=== PATIENT | female | born 1980 | race Caucasian/White ===

== ENCOUNTER 2021-05-27 14:05 | Outpatient (CLI) | payer MEDICAID ==
[2021-05-27 18:19] LABS: ALBUMIN 4.3 g/dL (3.2-5.5); BILIRUBIN,DIRECT 0.1 mg/dL (0.1-0.5); BILIRUBIN,TOTAL 0.5 mg/dL (0.2-1.0); TOTAL PROTEIN 7.3 g/dL (6.7-8.2)
[2021-05-28 12:22] LABS: HEPATITIS C ANTIBODY REACTIVE (NON-REACTIVE)
[2021-05-30 12:52] LABS: HCV RNA QNT 3.52 Log IU/mL (NOT DETECTED); HCV RNA QUANT RT PCR 3300 IU/mL (NOT DETECTED)
== END 2021-05-27 23:59 | disposition home or self-care (01) ==
LOC: LAB.N 14:05
PROVIDERS: ATTEND Physician Assistant Medical
DX: R76.0 Raised antibody titer (principal)
CPT/HCPCS: 36415; 80076; 86803

== ENCOUNTER 2021-07-17 14:56 | Outpatient (CLI) | payer MEDICAID ==
--- NOTE | 2021-07-17 16:28 | Ultrasound Report ---
PROCEDURE: Abdomen Complete INDICATIONS: HEPATITIS TECHNIQUE: Real-time scanning was performed of the abdominal and retroperitoneal organs, with image documentatio n. COMPARISON: None. FINDINGS: Liver: Liver is normal in size and homogeneous in echotexture. Gallbladder: The gallbladder wall thickness is within normal limits measuring 1.4 mm. There is a focu s of increased echogenicity which is nonmobile measuring 4 x 2 x 3 mm. Biliary ducts: Intrahepatic bile ducts are non-dilated. Extrahepatic bile duct caliber measures 3.7 mm. Normal is 6-7 mm or less in diameter, or 10 mm or less post-cholecystectomy. Pancreas: Visualized portions of the pancreas are sonographically normal. Spleen: Spleen is at the upper limits of normal in size and homogeneous in echotexture. Kidneys: Kidneys are normal in size and echotexture. Right kidney measures 12.4 cm long; left kidne y measures 13.1 cm long. No hydronephrosis or nephrolithiasis. No solid masses. Aorta: Visualized aorta is normal in caliber at less than 3 cm. Iliacs: Proximal common iliac arteries are normal in caliber at less than 2.5 cm. IVC: Intrahepatic inferior vena cava is patent. Miscellaneous: No free abdominal fluid. IMPRESSION: 1. Nonmobile focus of increased echogenicity within the gallbladder possibly polyp. 2. No focal liver lesions. Reviewed by: Amy Anthony MD on 07/17/2021 4:27 PM PST Approved by: Amy Anthony MD on 07/17/2021 4:27 PM PST Station ID: [id number]
== END 2021-07-17 14:57 | disposition home or self-care (01) ==
LOC: DI 14:56
PROVIDERS: ATTEND Physician Assistant
DX: B19.20 Unspecified viral hepatitis C without hepatic coma (principal)

== ENCOUNTER 2023-01-15 12:50 | Outpatient (CLI) | payer MEDICAID ==
[2023-01-15 13:00] LABS: BASOPHILS # (AUTO) 0.1 10^3/uL (0.0-0.1); BASOPHILS % (AUTO) 0.8 %; EOSINOPHILS # (AUTO) 0.1 10^3/uL (0.0-0.7); EOSINOPHILS % (AUTO) 1.4 %; HGB - HEMOGLOBIN 12.7 g/dL (12.0-16.0); LYMPHOCYTES # (AUTO) 1.9 10^3/uL (1.5-3.5); MEAN CORPUSCULAR HEMOGLOBIN 29.6 pg (27.0-31.0); MEAN CORPUSCULAR HGB CONC 32.6 g/dL (32.0-36.0); MEAN CORPUSCULAR VOLUME 90.9 fL (81.0-99.0); MEAN PLATELET VOLUME 8.9 fL (7.9-10.8); MONOCYTES # (AUTO) 0.6 10^3/uL (0.0-1.0); MONOCYTES % (AUTO) 8.8 %; NEUTROPHILS # (AUTO) 4.6 10^3/uL (1.5-6.6); NEUTROPHILS % (AUTO) 62.9 %; PLT - PLATELET COUNT 394 10^3/uL (130-450); RED BLOOD COUNT 4.29 10^6/uL (4.20-5.40); RED CELL DISTRIBUTION WIDTH 13.4 % (12.0-15.0); WHITE BLOOD COUNT 7.3 x10^3/uL (4.8-10.8)
[2023-01-15 13:30] LABS: THYROID STIMULATING HORMONE 0.83 uIU/mL (0.34-5.60)
[2023-01-15 13:32] LABS: FREE T4 (FREE THYROXINE) 0.74 ng/dL (0.58-1.64)
[2023-01-15 13:36] LABS: FERRITIN 14.5 ng/mL (11.0-306.8)
== END 2023-01-15 12:51 | disposition home or self-care (01) ==
LOC: LAB 12:50
PROVIDERS: ATTEND Nurse Practitioner
DX: N92.4 Excessive bleeding in the premenopausal period (principal)
CPT/HCPCS: 36415; 82728; 84439; 84443; 85025

== ENCOUNTER 2023-02-03 14:49 | Outpatient (CLI) | payer MEDICAID ==
--- NOTE | 2023-02-03 17:40 | Ultrasound Report ---
PROCEDURE: Pelvic w/Transvaginal INDICATIONS: ABN PERIMENOPAUSAL BLEEDING TECHNIQUE: Real-time scanning was performed of the pelvic organs, with image documentation. Additional endovagi nal scanning was necessary due to incomplete visualization of the adnexal and endometrial structures by transabdominal scanning. COMPARISON: None. FINDINGS: Uterus: Uterus is anteverted and normal in size at 10.0 x 4.7 x 7.1 cm. The myometrium is heterogen ous. The endometrium measures 6.4 mm in combined thickness. Intrauterine device in good position Ovaries: The right ovary measures 4.5 x 3.4 x 4.2 cm, with a calculated ovarian volume of 33.6 cc. The left ovary measures 3.4 x 1.5 x 2.0 cm, with a calculated ovarian volume of 5.7 cc. The ovaries have a normal sonographic appearance. Right ovarian simple cyst measures 4.0 x 3.4 cm. Left ovarian cyst measures 1.7 cm No adnexal masses are seen. No cystic lesions measuring greater than 3 cm. Other: No pathologic free abdominal or pelvic fluid. IMPRESSION: Intrauterine device in good position. 4 cm right ovarian simple cyst Reviewed by: Michael Hernandez MD on 02/03/2023 4:39 PM [facility] Approved by: Michael Hernandez MD on 02/03/2023 4:39 PM [facility]BRAD[facility] Station ID: [id number]
== END 2023-02-03 14:50 | disposition home or self-care (01) ==
LOC: DI 14:49
PROVIDERS: ATTEND Nurse Practitioner
DX: N92.4 Excessive bleeding in the premenopausal period (principal); Z97.5 Presence of (intrauterine) contraceptive device; N83.291 Other ovarian cyst, right side

== ENCOUNTER 2023-03-23 15:05 | Outpatient (CLI) | payer MEDICAID | END 2023-03-23 15:06 | disposition EMS.NT | LOC: EMS 15:05 | DX: Z04.1 Encounter for examination and observation following transport accident (principal); M25.531 Pain in right wrist ==